=== PATIENT | female | born 1960 | race Hispanic/Latino ===

== ENCOUNTER 2018-08-21 21:24 | Emergency (ER) | payer BC ==
[~2018-08-21] VITALS: Ht 157.5 cm; Wt 90.0 kg
[2018-08-21] MEDS ORDERED: ALENDRONATE70 MG PO (22:07)
[2018-08-21] MEDS ORDERED: VITAMIN D2400 UNIT PO (22:07)
[2018-08-21] MEDS ORDERED: METFORMIN500 MG PO (22:07)
[2018-08-21] MEDS ORDERED: ENALAPRIL10 MG PO (22:08)
[2018-08-21] MEDS ORDERED: LOVASTATIN20 M1 PO (22:08)
[2018-08-21] MEDS ORDERED: ASPIRIN 8181 MG PO (22:09)
[2018-08-21] MEDS ORDERED: TRAMADOL HCL50 MG PO (23:15)
[2018-08-21] MEDS ORDERED: VOLTAREN - GENE75 MG PO (23:15)
[2018-08-21 23:28] VITALS: BP 189/90
== END 2018-08-21 23:37 | disposition home or self-care (01) | DRG 999 ==
LOC: ED 21:24
DX: S80.212A Abrasion, left knee, initial encounter (principal); S80.211A Abrasion, right knee, initial encounter; S20.419A Abrasion of unspecified back wall of thorax, initial encounter; S22.000A Wedge compression fracture of unspecified thoracic vertebra, initial encounter for closed fracture; E11.9 Type 2 diabetes mellitus without complications; I10 Essential (primary) hypertension; W20.8XXA Other cause of strike by thrown, projected or falling object, initial encounter; Y92.007 Garden or yard of unspecified non-institutional (private) residence as the place of occurrence of the external cause; Z79.84 Long term (current) use of oral hypoglycemic drugs

== ENCOUNTER 2021-09-05 09:02 | Day surgery (SDC) | payer BC ==
[~2021-09-05] VITALS: Ht 152.4 cm; Wt 69.4 kg
[~2021-09-05 09:02] MED LIST: ALENDRONATE70 MG PO; ASPIRIN 8181 MG PO; ENALAPRIL10 MG PO; FARXIGA10 MG; FERREX 150150 MG PO; LIPITOR40 M1 PO; LOVASTATIN20 M1 PO; METFORMIN500 MG PO; OMEPRAZOLE DR40 MG; TRAMADOL HCL50 MG PO; TRULICITY1.5 MG/0.5; VITAMIN D2400 UNIT PO; VOLTAREN - GENE75 MG PO; WEEKLY-D1.25 MG
[2021-09-05] MEDS ORDERED: PERCOCET 5/325M1 TAB PO (10:45)
[2021-09-05 11:44] VITALS: BP 131/72
== END 2021-09-05 12:00 | disposition home or self-care (01) | DRG 419 ==
LOC: ORM 09:02
PROVIDERS: ATTEND Surgery
PROC: 0FT44ZZ Resection of Gallbladder, Percutaneous Endoscopic Approach (ICD-10-PCS; principal; 2021-09-05)
DX: K80.12 Calculus of gallbladder with acute and chronic cholecystitis without obstruction (principal); I10 Essential (primary) hypertension; E11.9 Type 2 diabetes mellitus without complications; Z79.899 Other long term (current) drug therapy; Z79.4 Long term (current) use of insulin
CPT/HCPCS: J0131; J1610; Q9967

== ENCOUNTER 2023-09-25 13:20 | Emergency (ER) | payer OTHER ==
[~2023-09-25 13:20] MED LIST changes: +PERCOCET 5/325M1 TAB PO
== END 2023-09-25 15:20 | disposition left against medical advice (07) | DRG 951 ==
LOC: ED 15:20
DX: Z53.29 Procedure and treatment not carried out because of patient's decision for other reasons (principal)